=== PATIENT | female | born 1965 | race Two or more races ===

== ENCOUNTER 2021-10-02 21:17 | Emergency (ER) | payer MEDICARE, OTHER ==
[~2021-10-02] VITALS: Ht 177.8 cm; Wt 136.1 kg
[2021-10-02 21:30] VITALS: BP 151/83
[2021-10-02] MEDS ORDERED: CEPHALEXIN MONOHYDRATE 500 MG CAPSULE PO ONE ×2 (21:30→21:36)
[2021-10-02] MEDS ORDERED: SULFAMETH/TRIMETH 800/160 MG 1 UDTAB TABLET PO ONE (21:30)
--- NOTE | 2021-10-02 21:30 | NUR ---
NICOLE FROM [facility] FOR ABSCESS TO LEFT LEG X1WEEK.
[2021-10-02] MEDS ORDERED: SULF1TAB48 PO (21:34)
[2021-10-02] MEDS ORDERED: CEPH500T PO (21:34)
[2021-10-02] MEDS ORDERED: SULFAMETH/TRIMETH 800/160 MG 1 UDTAB TABLET ONE (21:36)
--- NOTE | 2021-10-02 21:45 | NUR ---
[facility] ETA: 90 MIN
--- NOTE | 2021-10-02 21:51 | NUR ---
MULTIPLE ATTEMPTS TO GIVE REPORT TO THE FACILITY. NO ANSWER
--- NOTE | 2021-10-02 22:07 | NUR ---
ATTEMPTED TO CALL REPORT TO FACILITY. UNABLE TO REACH ANY STAFF.
--- NOTE | 2021-10-02 22:42 | NUR ---
PLACED MULTIPLE PHONE CALLS TO THE FACILITY. LEFT A MESSAGE REGARDING PATIENT'S CONDITION AND DISCHARGE STATUS
--- NOTE | 2021-10-02 22:50 | NUR ---
CALLED [facility] FOR PT UPDATE, NO ANSWER.
--- NOTE | 2021-10-02 22:59 | NUR ---
REPROT GIVEN TO EMS AT BEDSIDE
== END 2021-10-02 23:17 ==
LOC: ER 21:19
DX: L03.116 Cellulitis of left lower limb (principal)